=== PATIENT | female | born 1955 | race Caucasian/White ===

== ENCOUNTER → 2017-02-22 | Outpatient (CLI) | payer BC ==
[~2017-02-22] MED LIST: CALCIUM CITRATE+D PO; FLOVENT 110 M110 MCG INH; PLAQUENIL200 MG PO; RELAFEN500 MG PO; RESTASIS1 EACH OPHTH; SINGULAIR10 MG PO; THERA-VITE W/ B1 TAB PO; TYLENOL EXTRA500 MG PO; ULTRAM50 MG PO; VITAMIN D1000 UNIT PO; XOPENEX HF45 MCG/INH INH; ZANAFLEX4 MG PO; ZYRTEC-D TABLE1 EACH PO
== END ==
LOC: GAMB 11:47 → EDSTATUS 02-23 10:02 → GAMB 02-23 11:41
DX: S89.92XA Unspecified injury of left lower leg, initial encounter (principal); M25.562 Pain in left knee; X58.XXXA Exposure to other specified factors, initial encounter